=== PATIENT | male | born 1940 | race Caucasian/White ===

== ENCOUNTER → 2016-12-13 16:42 | Outpatient (CLI) | payer MEDICARE, OTHER ==
[2016-04-08 13:36] VITALS: BMI 31.6
[~2016-12-13 16:42] MED LIST: ACTOS45 MG PO; AUGMENTIN 875-11 TAB PO; BACTRIM DS TABL1 TAB PO; BACTROBAN 22 GM22 GM TOPICAL; BENEFIBER1 PKT PO; BOUDREAUXS113 GM TP; BUMEX2 MG PO; COLACE100 MG PO; COLCRYS0.6 MG PO; DIFLUCAN150 MG PO; DULCOLAX10 MG/SUPP RC; FLOMAX0.4 MG PO; GLUCAGON1 MG/KIT IM; GLUCAGON1 MG/KIT SQ; HUMALOG 30100 UNITS/; HUMALOG 30100 UNITS/ SC; HUMULIN R100 U/ML; HYDROCODONE-APA1 TAB PO; INSTA-GLUCOSE31 GM PO; INVANZ1 G/VIAL IV; K-DUR20 MEQ PO; LANTUS SOL100 UNIT/1 SC; LANTUS SOL100 UNIT/1 SQ; LEVEMIR100 U/M1 SQ; LEXAPRO10 MG PO; LEXAPRO20 MG PO; LOPRESSOR25 MG PO; LOTRISONE CREAM45 GM TP; LOVENOX40 MG/0.4 SQ; MACROBID100 MG PO; MIRALAX17 GM PO; NORCO 10/325 TA1 TA1 PO; NYSTATIN1 PWD TOPICAL; NYSTATIN15 GM TP; NYSTATIN60 GM TP; PLAVIX75 MG PO; PROSCAR5 MG PO; ROCEPHIN 1 GM IN1 GM IM; SLOW-MAG 64 MG64 MG PO; SODIUM CL 0.41000 ML IV; TYLENOL325 MG PO; ULTRAM50 MG PO; VANCOMYCIN H1 G/VIA1 IV; ZAROXOLYN2.5 MG PO; ZESTRIL10 MG PO; ZOCOR40 MG PO; [UNRECOGNIZED DRUG - OTHER] PO
[2016-12-13 18:28] LABS: BASOPHILS 0.6 % (0-2); EOSINOPHILS 3.6 % (0-7); HEMATOCRIT 52.7 % (42.0-54.0); HEMOGLOBIN 17.3 g/dL (13.5-17.5); IMMATURE GRANULOCYTES 0.3 % (0-5); LYMPHOCYTES 28.6 % (15-50); MCH 29.2 pg (26.0-34.0); MCHC 32.8 g/dL (31.0-37.0); MEAN PLATELET VOLUME 11.4 fL (7.4-10.4); MONOCYTES 6.7 % (2-11); NEUTROPHILS 60.2 % (40-80); PLATELET COUNT 139 10x3/uL (130-400); RBC 5.92 10x6/uL (4.20-6.10); RDW 13.2 % (11.5-14.5); WBC 6.8 10x3/uL (4.8-10.8)
[2016-12-13 19:02] LABS: BILIRUBIN - TOTAL 0.68 mg/dL (0.2-1.3); CALCIUM 8.5 mg/dL (8.5-10.1); CARBON DIOXIDE 29.5 mmol/L (21.0-32.0); CREATININE - SERUM 1.4 mg/dL (0.6-1.3); POTASSIUM - SERUM 3.5 mmol/L (3.5-5.1); PROTEIN - SERUM 7.1 g/dL (6.4-8.2)
== END | disposition home or self-care (01) ==
LOC: D.LABREF 16:42
PROVIDERS: Family Medicine
DX: N18.9 Chronic kidney disease, unspecified (principal); I50.9 Heart failure, unspecified

== ENCOUNTER → 2017-01-03 15:15 | Outpatient (CLI) | payer MEDICARE, OTHER ==
[2016-04-08 13:36] VITALS: BMI 31.6
[2017-01-03 16:46] LABS: APPEARANCE CLEAR (CLEAR); BILIRUBIN NEGATIVE (NEGATIVE); COLOR YELLOW (YELLOW); GLUCOSE 50 mg/dL (NEGATIVE); KETONE NEGATIVE (NEGATIVE); LEUKOCYTE ESTERASE 2+ (NEGATIVE); NITRITE NEGATIVE (NEGATIVE); PROTEIN 1+ mg/dL (NEGATIVE); SPECIFIC GRAVITY 1.015 (1.005-1.020)
[2017-01-03 16:47] LABS: BACTERIA FEW /hpf (NONE SEEN); RED CELLS - URINE >50 /hpf (0-5)
[2017-01-03 16:49] LABS: HEMOGLOBIN A1C 10.3 % (4.8-6.0)
== END | disposition home or self-care (01) ==
LOC: D.LABREF 15:15
PROVIDERS: Family Medicine
DX: E11.9 Type 2 diabetes mellitus without complications (principal); Z87.440 Personal history of urinary (tract) infections

== ENCOUNTER → 2017-02-03 13:35 | Outpatient (CLI) | payer MEDICARE, OTHER ==
[2016-04-08 13:36] VITALS: BMI 31.6
[~2017-02-03 13:35] MED LIST changes: +DIFLUCAN100 MG PO; +MUCINEX DM ER1 EAC1 PO; +NYSTATIN15 GM TOPICAL; +OMNICEF300 MG PO; +PROTONIX40 MG PO; +TESSALON PERLE100 MG PO
== END | disposition home or self-care (01) ==
LOC: D.LABREF 13:35
DX: Z46.6 Encounter for fitting and adjustment of urinary device (principal); N40.0 Benign prostatic hyperplasia without lower urinary tract symptoms; Z86.73 Personal history of transient ischemic attack (TIA), and cerebral infarction without residual deficits; N39.0 Urinary tract infection, site not specified; E11.51 Type 2 diabetes mellitus with diabetic peripheral angiopathy without gangrene

== ENCOUNTER 2017-02-05 21:17 | Inpatient (IN) | payer MEDICARE, OTHER ==
[~2017-02-05 21:17] MED LIST changes: -DIFLUCAN100 MG PO; -MUCINEX DM ER1 EAC1 PO; -NYSTATIN15 GM TOPICAL; -OMNICEF300 MG PO; -PROTONIX40 MG PO; -TESSALON PERLE100 MG PO
[2017-02-05 21:44] LABS: APPEARANCE CLEAR (CLEAR); BILIRUBIN NEGATIVE (NEGATIVE); COLOR YELLOW (YELLOW); GLUCOSE 1000 mg/dL (NEGATIVE); KETONE NEGATIVE (NEGATIVE); NITRITE POSITIVE (NEGATIVE); PROTEIN TRACE mg/dL (NEGATIVE); SPECIFIC GRAVITY 1.015 (1.005-1.020); UROBILINOGEN NORMAL (NORMAL)
[2017-02-05 21:47] LABS: BACTERIA MANY /hpf (NONE SEEN); EPITHELIAL CELLS 0-5 /hpf (0-5); WHITE CELLS - URINE 25-50 /hpf (0-5)
[2017-02-05 21:48] LABS: AMORPHOUS SEDIMENT <1+ /lpf (NONE SEEN)
[2017-02-05 22:02] LABS: BASOPHILS 0.6 % (0-2); EOSINOPHILS 3.3 % (0-7); HEMATOCRIT 51.4 % (42.0-54.0); HEMOGLOBIN 16.9 g/dL (13.5-17.5); IMMATURE GRANULOCYTES 0.4 % (0-5); LYMPHOCYTES 40.6 % (15-50); MCH 29.5 pg (26.0-34.0); MCHC 32.9 g/dL (31.0-37.0); MCV 89.9 fL (80.0-100.0); MEAN PLATELET VOLUME 11.1 fL (7.4-10.4); MONOCYTES 6.7 % (2-11); NEUTROPHILS 48.4 % (40-80); PLATELET COUNT 131 10x3/uL (130-400); RBC 5.72 10x6/uL (4.20-6.10); RDW 13.6 % (11.5-14.5); WBC 4.9 10x3/uL (4.8-10.8)
[2017-02-05 22:16] LABS: ALBUMIN 2.8 g/dL (3.4-5.0); ALKALINE PHOSPHATASE 173 U/L (46-116); ALT (SGPT) 14 U/L (10-68); BILIRUBIN - TOTAL 0.62 mg/dL (0.2-1.3); CALCIUM 9.3 mg/dL (8.5-10.1); CARBON DIOXIDE 31.4 mmol/L (21.0-32.0); CHLORIDE - SERUM 101 mmol/L (98-107); CREATININE - SERUM 1.4 mg/dL (0.6-1.3); POTASSIUM - SERUM 4.6 mmol/L (3.5-5.1); PROTEIN - SERUM 7.6 g/dL (6.4-8.2); SODIUM 140 mmol/L (136-145); UREA NITROGEN 27 mg/dL (7-18); eGFR NON AFRICAN AMERICAN 52 mL/min (90-120)
[2017-02-05 22:18] LABS: CREATINE KINASE 32 UL (21-232)
[2017-02-05 22:20] LABS: CALC OSMOLALITY 295 mosm/kg (275-300); GLUCOSE 323 mg/dL (74-106); TROPONIN-I < 0.017 ng/mL (0.000-0.060)
[2017-02-05 22:26] LABS: KETONE - SERUM NEGATIVE (NEGATIVE)
[2017-02-06] VITALS: BP 108/58
[2017-02-06 00:34] VITALS: BP 108/58; BMI 32.3
--- NOTE | 2017-02-06 01:05 | NUR ---
PT ARRIVED VIA STRETCHER FROM ER AT 0010 HRS. STAFF X4 TO PUT IN BED. PT BEDBOUND. PT ALERT, ORIENTED TO PERSON AND PLACE. REORIENTED TO TIME AND SITUATION. 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 URINE DARK. IV TO L HAND WITH INVANZ INFUSING. O2 2LNC. LUNGS DIMINISHED IN BASES BILAT. LOWER EXTREMITIES WITH IMPAIRED ROM AND FOOT DROP. NUMEROUS SMALL SORES NOTED TO BACK OF UPPER THIGHS AND LOWER BACK. DRESSING TO R HIP CLEAN, DRY AND INTACT. STATED SHE PUT THAT DRESSING ON PT KEPT SCRATCHING ONE OF THE SORES. BED ALRM ON. SR UP X2, CALL LIGHT WITHIN REACH.
--- NOTE | 2017-02-06 02:15 | NUR ---
PT REPOSITIONED IN BED FOR COMFORT. SCD'S PLACED. WILL CONTINEU TO MONITOR. SR UP X2, CALL LIGHT WITHIN REACH AND BED ALARM ON.
[2017-02-06 04:00] VITALS: BP 133/63
--- NOTE | 2017-02-06 04:25 | NUR ---
PT RESTING WITH EYES CLOSED. RESP EVEN AND REGULAR. SR UP X2, CALL LIGHT WITHIN REACH AND BED ALARM ON.
[2017-02-06 05:27] LABS: BASOPHILS 0.4 % (0-2); HEMATOCRIT 50.2 % (42.0-54.0); HEMOGLOBIN 16.7 g/dL (13.5-17.5); IMMATURE GRANULOCYTES 0.4 % (0-5); LYMPHOCYTES 25.5 % (15-50); MCH 29.6 pg (26.0-34.0); MCHC 33.3 g/dL (31.0-37.0); MCV 88.8 fL (80.0-100.0); MONOCYTES 9.3 % (2-11); NEUTROPHILS 62.4 % (40-80); PLATELET COUNT 141 10x3/uL (130-400); RBC 5.65 10x6/uL (4.20-6.10); RDW 13.6 % (11.5-14.5)
[2017-02-06 05:30] LABS: WBC 7.2 10x3/uL (4.8-10.8)
[2017-02-06 05:44] LABS: ANION GAP 11.4 mmol/L (8-16); CALCIUM 9.1 mg/dL (8.5-10.1); CARBON DIOXIDE 29.9 mmol/L (21.0-32.0); CREATININE - SERUM 1.4 mg/dL (0.6-1.3); POTASSIUM - SERUM 4.3 mmol/L (3.5-5.1)
--- NOTE | 2017-02-06 06:07 | NUR ---
VSS. PT DENIED ANY DISCOMFORT. NEEDS MET; WILL CONTINUE TO MONITOR.
--- NOTE | 2017-02-06 07:00 | NUR ---
RECEIVED REPORT. ASSUMED CARE OF PATIENT. RESTING IN BED WITH EYES OPEN, IV FLUIDS INFUSING ORDERED. RESP EVEN AND UNLABORED. DENIES NEEDS AT THIS TIME. NO DISTRESS.
[2017-02-06 08:00] VITALS: BP 110/59
--- NOTE | 2017-02-06 11:31 | NUR ---
FSBS 286. 10 UNITS HUMALOG ADMINISTERED PER SLIDING SCALE AT THIS TIME. NO DISTRESS.
--- NOTE | 2017-02-06 14:09 | NUR ---
CALLED AND SPOKE TO PATIENTS AND PATIENT DOES TAKE HIS PILLS WHOLE, DOES NOT NEED THEM CRUSHED. THANKED PATIENTS . SHE WILL BE UP TOMORROW. SHE IS NOT FEELING WELL TODAY.
--- NOTE | 2017-02-06 14:14 | NUR ---
AWAITING FOR SLOW MAG AND ZAROXYLYN TO BE BROUGHT UP FROM PHARMACY
[2017-02-06 16:00] VITALS: BP 148/72
--- NOTE | 2017-02-06 16:42 | NUR ---
FSBS 301. 12 UNITS HUMALOG ADMINISTERED ORDERED PER SLIDING SCALE.
--- NOTE | 2017-02-06 19:49 | NUR ---
RESUMED CARE OF PT, LYING IN BED RESPIRATIONS EVEN AND UNLABORED ON 2LPM VIA NC. RAMOS TO GRAVITY. LEFT HAND INFUSING NS @ 100. FAMILY AT BEDSIDE, CALL LIGHT IN REACH. WILL CONTINUE TO MONITOR. SEE NURSE ASSESSMENT.
[2017-02-06 20:00] VITALS: BP 138/62
[2017-02-07] VITALS: BP 133/59; BP 93/52
--- NOTE | 2017-02-07 00:17 | NUR ---
BED BATH AND LINENS CHANGED, CALL LIGHT IN REACH AND REPOSITIONED FOR COMFORT.
[2017-02-07 05:10] LABS: BASOPHILS 0.3 % (0-2); HEMATOCRIT 47.9 % (42.0-54.0); IMMATURE GRANULOCYTES 0.5 % (0-5); LYMPHOCYTES 29.4 % (15-50); MCH 29.5 pg (26.0-34.0); MCHC 33.4 g/dL (31.0-37.0); MCV 88.4 fL (80.0-100.0); MEAN PLATELET VOLUME 11.4 fL (7.4-10.4); MONOCYTES 8.9 % (2-11); NEUTROPHILS 57.9 % (40-80); PLATELET COUNT 137 10x3/uL (130-400); RBC 5.42 10x6/uL (4.20-6.10); RDW 13.8 % (11.5-14.5); WBC 6.3 10x3/uL (4.8-10.8)
[2017-02-07 05:19] LABS: ANION GAP 11.5 mmol/L (8-16); CALCIUM 8.9 mg/dL (8.5-10.1); CARBON DIOXIDE 29.5 mmol/L (21.0-32.0); CREATININE - SERUM 1.1 mg/dL (0.6-1.3); MAGNESIUM - SERUM 1.5 mg/dL (1.8-2.4)
--- NOTE | 2017-02-07 06:16 | NUR ---
NO CHANGES FROM PREVIOUS ASSESSMENT, CALL LIGHT IN REACH.
--- NOTE | 2017-02-07 07:00 | NUR ---
AM ROOUNDING WITH PATIENT APPEARING ASLEEP. RESP ARE EVEN AND NON LABORED. ON BACK. RAMOS CATH SEEN WITH YELLOW URINE. BILATERAL SCD'S ARE IN USE. LEFT HAND SEEN WITH NS INFUSING AT 100 CC/HR. MUNIR ALARM IN USE. WILL MONITOR.
[2017-02-07 07:03] VITALS: BP 129/69
[2017-02-07 08:05] VITALS: BP 122/60
[2017-02-07 11:47] VITALS: BP 137/66
--- NOTE | 2017-02-07 13:33 | NUR ---
1ST STEP OVERLAY MATTRESS TO BED.
[2017-02-07 15:31] VITALS: BMI 33.2
[2017-02-07 15:42] VITALS: BP 118/56
[2017-02-07 19:00] VITALS: BP 131/50
--- NOTE | 2017-02-07 19:35 | NUR ---
PT IN BED RESTING QUEITLY. DENIES ANY PAIN OR NEEDS AT THIS TIME. BED IN LOW POSITION, CALL LIGHT WITHIN REACH.
--- NOTE | 2017-02-07 21:47 | NUR ---
PT IN BED RESTING QUIETLY. DENIES ANY PAIN OR NEEDS AT THIS TIME. BED IN LOW POSITION, CALL LIGHT WITHIN REACH.
--- NOTE | 2017-02-08 03:22 | NUR ---
PT IN BED RESTING QUIETLY. DENIES ANY PAIN OR NEEDS AT THIS TIME. BED IN LOW POSITION, CALL LIGHT WITHIN REACH.
[2017-02-08 04:00] VITALS: BP 149/64
[2017-02-08 05:25] LABS: BASOPHILS 0.5 % (0-2); EOSINOPHILS 3.9 % (0-7); HEMATOCRIT 47.4 % (42.0-54.0); HEMOGLOBIN 15.6 g/dL (13.5-17.5); IMMATURE GRANULOCYTES 0.4 % (0-5); LYMPHOCYTES 26.4 % (15-50); MCH 29.3 pg (26.0-34.0); MCHC 32.9 g/dL (31.0-37.0); MCV 88.9 fL (80.0-100.0); MEAN PLATELET VOLUME 11.2 fL (7.4-10.4); MONOCYTES 10.1 % (2-11); NEUTROPHILS 58.7 % (40-80); PLATELET COUNT 125 10x3/uL (130-400); RBC 5.33 10x6/uL (4.20-6.10); RDW 13.7 % (11.5-14.5); WBC 5.6 10x3/uL (4.8-10.8)
[2017-02-08 05:28] LABS: CALCIUM 8.6 mg/dL (8.5-10.1); CARBON DIOXIDE 30.6 mmol/L (21.0-32.0); CHLORIDE - SERUM 105 mmol/L (98-107); POTASSIUM - SERUM 3.6 mmol/L (3.5-5.1); SODIUM 141 mmol/L (136-145); eGFR NON AFRICAN AMERICAN 77 mL/min (90-120)
[2017-02-08 05:43] LABS: CALC OSMOLALITY 286 mosm/kg (275-300); GLUCOSE 182 mg/dL (74-106); UREA NITROGEN 15 mg/dL (7-18)
[2017-02-08 08:06] VITALS: BP 143/65
--- NOTE | 2017-02-08 09:53 | NUR ---
02/07/17 Wound care (late entry) 1245 Noted numerous scabbed areas on legs and trunk-pt states that it was a "rash". There is an open wound on right hip that measures 1.5cm x 1.5cm. It has dry wound bed and periwound. No drainage or odor noted. Just above gluteal cleft is a skin fold running vertically. A skin tear is noted in the fold. There is another skin fold running diagonally that has a skin tear. The pt is being repositioned q 2 hours with maximum assistance. An air overlay mattress was placed on the bed to help decrease pressure and moisture. He is incontinent. Recommend calmoseptine cream to protect from moisture and covering right hip open wound with bordered gauze to protect it. Continue q2h position changes and personal care as necessary. Wound care will continue to monitor.
[2017-02-08 12:17] VITALS: BP 121/49
--- NOTE | 2017-02-08 12:24 | NUR ---
IV TUBING CHANGED OUT AT THIS TIME.
[2017-02-08] MEDS ORDERED: OMNICEF300 MG PO (12:39)
--- NOTE | 2017-02-08 13:16 | NUR ---
SPPOKE TO PATIENTS AND SHE IS UPSET THAT PATIENT IS BEING DISCHARGED PRIOR TO HAVING RASH DIAGNOSED ON HIS BACK. PATIENTS STATES THAT WE HAVE TO LET DISPATCH FROM [facility] KNOW THAT IT TOOK 6 PEOPLE TO GET HIM TO THE BEDROOM ONTO THE STRETCHER BECAUSE THEY CAN'T GET THE STRETCHER DOWN THE [place]. INFORMED PATIENTS THAT I WOULD LET TRANSPORT KNOW AND THAT ALSO WE WOULD BE CHANGING PATIENTS RAMOS CATHETER PRIOR TO HIM LEAVING TODAY. WILL CALL PATIENTS WHEN PATIENT LEAVES FACILITY TO HOME.
--- NOTE | 2017-02-08 14:18 | NUR ---
RAMOS CATHETER CHANGED AT THIS TIME PER ORDERS FROM /KAILEY MAGDALENO. 16 FR RAMOS PLACED VIA STERILE TECHNIQUE. APPROX 75 CC PALE YELLOW URINE RECEIVED UPON INSERTION OF F/C. RAMOS CATHETER TO DRAINAGE BAG VIA GRAVITY. PATIENT TOLERATED PROCEDURE WELL. PATIENT DENIES ANY PAIN OR DISCOMFORT. CALL LIGHT PLACED WITHIN REACH. NO DISTRESS.
--- NOTE | 2017-02-08 14:45 | NUR ---
SPOKE WITH ESTEBAN AT [facility] TO ARRANGE TRANSPORTATION HOME. INFORMED ESTEBAN OF THE NEED FOR EXTRA PEOPLE TO GET PATIENT INTO THE HOME. ESTEBAN STATED HE SHOULD HAVE SOMEONE HERE WITHIN ABOUT 45 MINUTES
--- NOTE | 2017-02-08 14:56 | NUR ---
20 GAUGE IV REMOVED FROM LEFT HAND PATIENT IS BEING DISCHARGED TO HOME VIA AMBULANCE. CATHETER INTACT. NO BLEEDING FROM SITE. 2X2 GAUZE APPLIED AND SECURED WITH TAPE. TOLERATED REMOVAL OF IV WELL. NO DISTRESS.
--- NOTE | 2017-02-08 15:25 | NUR ---
CALLED AND SPOKE TO PATIENTS . [facility] HERE TO GET PATIENT AT THIS TIME. PATIENT ATTEMPTED TO SIGN HIS DISCHARGE INSTRUCTIONS. INSTRUCTIONS PROVIDED TO AND PATIENT AND WENT OVER MEDICATIONS CALLED TO THE PHARMACY.
--- NOTE | 2017-02-08 15:40 | NUR ---
PATIENT LEFT UNIT WITH ALL BELONGINGS WITH [facility] PERSON[facility]. NO DISTRESS UPON LEAVING UNIT. CALLED AND NOTIFIED THAT PATIENT WAS ON HIS WAY AT THIS TIME.
--- NOTE | 2017-02-08 16:37 | NUR ---
Patient Name: ARCHIE AGUILAR Admission Status: ER Accout number: [id number] Admission Date: 02-05-2017 : 1940 Admission Diagnosis: Attending: TORRES RAMON Current LOS: 3 Anticipated DC Date: 02-08-2017 Planned Disposition: Home with Home Health Primary Insurance: MEDICARE A & B PLANNED EXTERNAL PROVIDER: [facility] LATE ENTRY: Discharge Planning Comments: * Is the patient Alert and Oriented? Yes 0 * How many steps to enter\exit or inside your home? RAMP 0 * PCP DR. MOTT 0 * Pharmacy [place] * Preadmission Environment Home with Family 0 * ADLs Partial Dependent 0 * Partial ADLs (Assistance needed) Bathing Dressing Medication Management Toileting Transfers 0 * Equipment Hospital Bed Luciano Lift Wheelchair 0 * Other Equipment NO MEDICAL EQUIPMENT PROVIDER PREFERENCE 0 * List name and contact numbers for known caregivers / representatives who currently or will assist patient after discharge: DELANO AGUILAR, SPOUSE, 0 * Community resources currently utilized Home Health 0 * Please name any agencies selected above. [facility] 0 * Additional services required to return to the preadmission environment? No 0 * Can the patient safely return to the preadmission environment? Yes 0 * Has this patient been hospitalized within the prior 30 days at any hospital? No 0 CM RECEIVED DISCHARGE ORDER, MET WITH PT IN ROOM TO DISCUSS DISCHARGE PLANNING AND NEEDS. PT REPORTS HAVING ALL NEEDED MEDICAL EQUIPMENT AT HOME AND PT'S SPOUSE TAKES CARE OF ALL OF PT'S NEEDS. PT HAS HOME HEALTH WITH [facility]. PT'S NURSE REPORTS PT ALSO HAS [facility] VISITING; PT'S NURSE HAS SPOKEN TO PT'S SPOUSE WHO IS IN AGREEMENT WITH DISCHARGE PLAN HOME TODAY WITH HOME HEALTH RESUMPTION, SHE IS HOME TO RECEIVE PT VIA AMBULANCE. PT'S NURSE WILL CALL AMBULANCE AND NOTIFY PT'S SPOUSE WHEN AMBULANCE LEAVES HOSPITAL WITH PT. PT HAPPY ABOUT GETTING TO GO HOME, IMPORTANT MESSAGE FROM MEDICARE PROVIDED AND DISCUSSED. CM RECEIVED CALL FROM KANA OF [facility], SHE HAS BEEN CONTACTED BY PT'S SPOUSE AND REQUESTED DISCHARGE INFORMATION. CM FAXED DISCHARGE INFORMATION TO [facility] AT [phone]. Transmission And Protection Engineer: Charlie Hughes
== END 2017-02-08 15:45 | disposition home health service (06) | DRG 698 ==
LOC: D.ER 21:17 → D.M2 22:56
PROVIDERS: Emergency Medicine; ADMIT Family Medicine
DX: T83.511A Infection and inflammatory reaction due to indwelling urethral catheter, initial encounter (principal); G93.41 Metabolic encephalopathy; I13.0 Hypertensive heart and chronic kidney disease with heart failure and stage 1 through stage 4 chronic kidney disease, or unspecified chronic kidney disease; N17.9 Acute kidney failure, unspecified; N39.0 Urinary tract infection, site not specified; Y84.6 Urinary catheterization as the cause of abnormal reaction of the patient, or of later complication, without mention of misadventure at the time of the procedure; E11.22 Type 2 diabetes mellitus with diabetic chronic kidney disease; N18.9 Chronic kidney disease, unspecified; I50.9 Heart failure, unspecified; Z74.01 Bed confinement status; N40.0 Benign prostatic hyperplasia without lower urinary tract symptoms; K21.9 Gastro-esophageal reflux disease without esophagitis; E86.0 Dehydration; I25.10 Atherosclerotic heart disease of native coronary artery without angina pectoris; E11.65 Type 2 diabetes mellitus with hyperglycemia; Z79.4 Long term (current) use of insulin; Z86.73 Personal history of transient ischemic attack (TIA), and cerebral infarction without residual deficits; M17.0 Bilateral primary osteoarthritis of knee

== ENCOUNTER → 2017-03-30 18:12 | Outpatient (CLI) | payer MEDICARE, OTHER ==
[~2017-03-30 18:12] MED LIST changes: +DIFLUCAN100 MG PO; +MUCINEX DM ER1 EAC1 PO; +NYSTATIN15 GM TOPICAL; +OMNICEF300 MG PO; +PROTONIX40 MG PO; +TESSALON PERLE100 MG PO
[2017-03-30 19:44] LABS: APPEARANCE CLEAR (CLEAR); BACTERIA MODERATE /hpf (NONE SEEN); BILIRUBIN NEGATIVE (NEGATIVE); COLOR YELLOW (YELLOW); GLUCOSE NEGATIVE (NEGATIVE); KETONE NEGATIVE (NEGATIVE); NITRITE NEGATIVE (NEGATIVE); PROTEIN NEGATIVE (NEGATIVE); RED CELLS - URINE 0-5 /hpf (0-5); SPECIFIC GRAVITY 1.015 (1.005-1.020); UROBILINOGEN NORMAL (NORMAL); WHITE CELLS - URINE 0-5 /hpf (0-5)
== END | disposition home or self-care (01) ==
LOC: D.LABREF 18:12
PROVIDERS: Family Medicine
DX: N31.9 Neuromuscular dysfunction of bladder, unspecified (principal); N39.0 Urinary tract infection, site not specified; T83.511A Infection and inflammatory reaction due to indwelling urethral catheter, initial encounter; N40.0 Benign prostatic hyperplasia without lower urinary tract symptoms; E11.51 Type 2 diabetes mellitus with diabetic peripheral angiopathy without gangrene

== ENCOUNTER → 2017-04-13 17:55 | Outpatient (CLI) | payer MEDICARE, OTHER ==
[2017-04-13 19:28] LABS: APPEARANCE HAZY (CLEAR); BILIRUBIN NEGATIVE (NEGATIVE); COLOR YELLOW (YELLOW); GLUCOSE NEGATIVE (NEGATIVE); KETONE NEGATIVE (NEGATIVE); NITRITE NEGATIVE (NEGATIVE); PROTEIN TRACE mg/dL (NEGATIVE); SPECIFIC GRAVITY 1.015 (1.005-1.020); UROBILINOGEN NORMAL (NORMAL)
[2017-04-13 19:29] LABS: BACTERIA MANY /hpf (NONE SEEN); RED CELLS - URINE 25-50 /hpf (0-5); WHITE CELLS - URINE >50 /hpf (0-5)
== END | disposition home or self-care (01) ==
LOC: D.LABREF 17:55
PROVIDERS: Family Medicine
DX: N39.0 Urinary tract infection, site not specified (principal); T83.511A Infection and inflammatory reaction due to indwelling urethral catheter, initial encounter; N31.9 Neuromuscular dysfunction of bladder, unspecified; N40.0 Benign prostatic hyperplasia without lower urinary tract symptoms

== ENCOUNTER → 2017-04-20 12:10 | Outpatient (CLI) | payer MEDICARE, OTHER ==
[2017-04-20 13:59] LABS: APPEARANCE CLOUDY (CLEAR); COLOR YELLOW (YELLOW); GLUCOSE 250 mg/dL (NEGATIVE); NITRITE NEGATIVE (NEGATIVE); PROTEIN 2+ mg/dL (NEGATIVE)
[2017-04-20 14:00] LABS: BILIRUBIN NEGATIVE (NEGATIVE); KETONE NEGATIVE (NEGATIVE); UROBILINOGEN NORMAL (NORMAL)
[2017-04-20 14:02] LABS: BACTERIA MANY /hpf (NONE SEEN); EPITHELIAL CELLS 0-5 /hpf (0-5); WHITE CELLS - URINE >50 /hpf (0-5)
== END | disposition home or self-care (01) ==
LOC: D.LABREF 12:10
PROVIDERS: Family Medicine
DX: N39.0 Urinary tract infection, site not specified (principal)

== ENCOUNTER 2017-04-23 18:56 | Inpatient (IN) | payer MEDICARE, OTHER ==
[~2017-04-23] VITALS: Ht 188 cm; Wt 120.7 kg
--- NOTE | ~2017-04-23 | EC ---
PATIENT:ARCHIE AGUILAR DATE OF SERVICE: 04/23/17 SEX: M MEDICAL RECORD: [id number] DATE OF : 40 LOCATION:[facility] AGE OF PATIENT: 76 ADMISSION DATE: 04/23/17 REFERRING PHYSICIAN: INTERPRETING PHYSICIAN: ALISHA CRUZ MD ECHOCARDIOGRAM REPORT ECHO CHARGES 5 ECHO LIMITED CLINICAL DIAGNOSIS: CHF HX OF DE/CVA ECHOCARDIOGRAPHIC MEASUREMENTS (adult normal given) AC root (d.<3.7cm) cm LV Septum d (<1.2 cm> cm Valve Excursion cm LV Septum (systole) cm Left Atria (s.<4.0cm> cm LVPW d(<1.2cm) cm RV (d.<2.3cm) 4.5 cm LVPW (sytole) cm LV diastole(<5.6CM) 5.0 cm MV E-F(>70mm/sec) cm LV systole 3.7 cm LVOT Diameter 2.0 cm MV exc.(>10mm) cm Est.ejection fraction (50-75%) % Pericardial Effusion N DOPPLER: LVIT cm/sec A 72.0 cm/sec E 50.0 cm/sec LA cm/sec RVSP 20 mmHg LVOT 111 cm/sec AOP1/2T m/s Asc. Ao 134 cm/sec RVOT cm/sec RA cm/sec PA cm/sec AV Gradient Peak 7.23 mmHg AV Mean 3.31 mmHg AV Area 2.4 cm MV Gradient Peak 2.01 mmHg MV Mean 1.01 mmHg MV Area cm COMMENTS: Night Assistant: Mervat SANCHEZ Engine Repair Supervisor: 1 Dr. Davidson TAPE# PACS DATE OF SERVICE: 04/26/2017 Adequate 2D echo, color flow, spectral Doppler, and M-mode. Borderline LVH. LV internal dimensions are normal. Grossly wall motion appears normal. EF estimated at 50%. Aortic valve sclerosis without stenosis by Doppler interrogation. The left atrium is dilated at 4.5 cm. Mitral valve shows no prolapse. Trace MR. Right-sided chamber size is grossly normal. Trace TR. TRANSINT:[id number] Voice Confirmation ID: [id number] DOCUMENT ID: [id number] ECHOCARDIOGRAM REPORT [id number] ARCHIE AGUILAR ALISHA CRUZ MD at 1318 CC: [id number] DICTATION DATE: 04/26/17 1427 LETTERPRESS SETTER: 04/26/17 1452 ADM IN [facility] [address] [id number]
[~2017-04-23 18:56] MED LIST changes: -DIFLUCAN100 MG PO; -MUCINEX DM ER1 EAC1 PO; -NYSTATIN15 GM TOPICAL; -PROTONIX40 MG PO; -TESSALON PERLE100 MG PO
[2017-04-23 19:20] LABS: BASOPHILS 0.2 % (0-2); EOSINOPHILS 2.1 % (0-7); HEMATOCRIT 52.4 % (42.0-54.0); HEMOGLOBIN 17.3 g/dL (13.5-17.5); IMMATURE GRANULOCYTES 0.1 % (0-5); LYMPHOCYTES 27.8 % (15-50); MCH 29.4 pg (26.0-34.0); MEAN PLATELET VOLUME 10.5 fL (7.4-10.4); MONOCYTES 5.5 % (2-11); NEUTROPHILS 64.3 % (40-80); PLATELET COUNT 147 10x3/uL (130-400); RBC 5.89 10x6/uL (4.20-6.10); RDW 13.1 % (11.5-14.5); WBC 8.2 10x3/uL (4.8-10.8)
[2017-04-23 19:40] LABS: ALBUMIN 3.2 g/dL (3.4-5.0); ANION GAP 11.5 mmol/L (8-16); BILIRUBIN - TOTAL 0.74 mg/dL (0.2-1.3); CALCIUM 9.8 mg/dL (8.5-10.1); CARBON DIOXIDE 32.6 mmol/L (21.0-32.0); CREATININE - SERUM 1.3 mg/dL (0.6-1.3); POTASSIUM - SERUM 4.1 mmol/L (3.5-5.1)
[2017-04-23 20:01] LABS: CREATINE KINASE 25 UL (21-232); PRO BNP 232 pg/mL (0-450); TROPONIN-I < 0.017 ng/mL (0.000-0.060)
[2017-04-23 20:35] LABS: APPEARANCE CLOUDY (CLEAR); BILIRUBIN NEGATIVE (NEGATIVE); COLOR YELLOW (YELLOW); GLUCOSE NEGATIVE (NEGATIVE); KETONE NEGATIVE (NEGATIVE); NITRITE NEGATIVE (NEGATIVE); PROTEIN NEGATIVE (NEGATIVE); UROBILINOGEN NORMAL (NORMAL)
[2017-04-23 20:36] LABS: BACTERIA FEW /hpf (NONE SEEN); RED CELLS - URINE 0-5 /hpf (0-5)
[2017-04-24 01:47] VITALS: BP 135/52; BMI 34.2
[2017-04-24 04:00] VITALS: BP 104/60
[2017-04-24 10:47] VITALS: BP 108/62
[2017-04-24 17:00] VITALS: BP 135/71
[2017-04-24 22:16] VITALS: BP 128/62
[2017-04-25 01:22] VITALS: BP 104/50
[2017-04-25 07:30] LABS: BASOPHILS 0.3 % (0-2); EOSINOPHILS 1.5 % (0-7); HEMATOCRIT 48.8 % (42.0-54.0); HEMOGLOBIN 16.2 g/dL (13.5-17.5); IMMATURE GRANULOCYTES 0.3 % (0-5); LYMPHOCYTES 21.8 % (15-50); MCH 29.3 pg (26.0-34.0); MCHC 33.2 g/dL (31.0-37.0); MCV 88.2 fL (80.0-100.0); MEAN PLATELET VOLUME 10.7 fL (7.4-10.4); NEUTROPHILS 67.1 % (40-80); PLATELET COUNT 164 10x3/uL (130-400); RBC 5.53 10x6/uL (4.20-6.10); RDW 13.2 % (11.5-14.5); WBC 9.1 10x3/uL (4.8-10.8)
[2017-04-25 08:02] LABS: ALBUMIN 2.8 g/dL (3.4-5.0); ANION GAP 12.7 mmol/L (8-16); CALCIUM 9.1 mg/dL (8.5-10.1); CARBON DIOXIDE 29.7 mmol/L (21.0-32.0); CREATININE - SERUM 1.5 mg/dL (0.6-1.3); POTASSIUM - SERUM 3.4 mmol/L (3.5-5.1)
[2017-04-25 08:26] LABS: BILIRUBIN - TOTAL 0.69 mg/dL (0.2-1.3); PROTEIN - SERUM 7.1 g/dL (6.4-8.2); THYROID STIMULATING HORMONE 3.7 uIU/mL (0.36-3.74)
[2017-04-25 08:34] VITALS: BP 106/64
[2017-04-25 12:33] VITALS: BP 118/55
[2017-04-25 16:51] VITALS: BP 131/50
[2017-04-25 22:17] VITALS: BP 122/57
[2017-04-26 02:28] VITALS: BP 104/62
[2017-04-26 04:41] VITALS: BP 98/55
[2017-04-26 07:01] LABS: BASOPHILS 0.3 % (0-2); EOSINOPHILS 2.1 % (0-7); HEMATOCRIT 44.8 % (42.0-54.0); HEMOGLOBIN 14.8 g/dL (13.5-17.5); IMMATURE GRANULOCYTES 0.1 % (0-5); LYMPHOCYTES 13.5 % (15-50); MCH 29.1 pg (26.0-34.0); MEAN PLATELET VOLUME 10.7 fL (7.4-10.4); MONOCYTES 10.3 % (2-11); NEUTROPHILS 73.7 % (40-80); PLATELET COUNT 139 10x3/uL (130-400); RBC 5.09 10x6/uL (4.20-6.10); RDW 13.5 % (11.5-14.5); WBC 7.7 10x3/uL (4.8-10.8)
[2017-04-26 07:29] LABS: ALBUMIN 2.5 g/dL (3.4-5.0); ANION GAP 11.8 mmol/L (8-16); BILIRUBIN - TOTAL 0.74 mg/dL (0.2-1.3); CALCIUM 8.7 mg/dL (8.5-10.1); CARBON DIOXIDE 29.5 mmol/L (21.0-32.0); CREATININE - SERUM 1.5 mg/dL (0.6-1.3); POTASSIUM - SERUM 3.3 mmol/L (3.5-5.1); PROTEIN - SERUM 6.8 g/dL (6.4-8.2)
[2017-04-26 08:26] VITALS: BP 97/52
[2017-04-26 12:27] VITALS: BP 121/60
[2017-04-26 14:18] VITALS: BMI 34.1
[2017-04-26 16:51] VITALS: BP 114/54
[2017-04-26 20:51] VITALS: BP 123/59
[2017-04-27 05:46] LABS: BASOPHILS 0.3 % (0-2); HEMATOCRIT 44.9 % (42.0-54.0); HEMOGLOBIN 14.8 g/dL (13.5-17.5); IMMATURE GRANULOCYTES 0.2 % (0-5); MCV 87.9 fL (80.0-100.0); MEAN PLATELET VOLUME 10.9 fL (7.4-10.4); MONOCYTES 13.3 % (2-11); NEUTROPHILS 71.2 % (40-80); PLATELET COUNT 133 10x3/uL (130-400); RBC 5.11 10x6/uL (4.20-6.10); RDW 13.6 % (11.5-14.5); WBC 6.1 10x3/uL (4.8-10.8)
[2017-04-27 05:53] VITALS: BP 108/55
[2017-04-27 05:59] LABS: ALBUMIN 2.4 g/dL (3.4-5.0); ANION GAP 9.5 mmol/L (8-16); BILIRUBIN - TOTAL 0.6 mg/dL (0.2-1.3); CALCIUM 8.6 mg/dL (8.5-10.1); CARBON DIOXIDE 30.7 mmol/L (21.0-32.0); CREATININE - SERUM 1.5 mg/dL (0.6-1.3); POTASSIUM - SERUM 3.2 mmol/L (3.5-5.1); PROTEIN - SERUM 6.8 g/dL (6.4-8.2)
[2017-04-27 08:44] VITALS: BP 106/62
[2017-04-27 11:53] VITALS: BP 130/53
[2017-04-27 16:17] VITALS: BP 82/49
[2017-04-27 17:03] VITALS: BP 95/52
[2017-04-27 20:00] VITALS: BP 123/71
[2017-04-28] VITALS: BP 130/71
[2017-04-28 05:00] VITALS: BP 133/66
[2017-04-28 06:03] LABS: BASOPHILS 0.3 % (0-2); EOSINOPHILS 0.6 % (0-7); HEMATOCRIT 47.9 % (42.0-54.0); IMMATURE GRANULOCYTES 0.4 % (0-5); LYMPHOCYTES 16.4 % (15-50); MCHC 33.4 g/dL (31.0-37.0); MCV 86.9 fL (80.0-100.0); MEAN PLATELET VOLUME 10.8 fL (7.4-10.4); MONOCYTES 13.8 % (2-11); NEUTROPHILS 68.5 % (40-80); PLATELET COUNT 134 10x3/uL (130-400); RBC 5.51 10x6/uL (4.20-6.10); RDW 13.6 % (11.5-14.5); WBC 6.7 10x3/uL (4.8-10.8)
[2017-04-28 06:45] LABS: ALBUMIN 2.9 g/dL (3.4-5.0); ANION GAP 11.4 mmol/L (8-16); BILIRUBIN - TOTAL 0.53 mg/dL (0.2-1.3); CALCIUM 9.3 mg/dL (8.5-10.1); CARBON DIOXIDE 31.1 mmol/L (21.0-32.0); CREATININE - SERUM 1.7 mg/dL (0.6-1.3); POTASSIUM - SERUM 3.5 mmol/L (3.5-5.1); PROTEIN - SERUM 7.7 g/dL (6.4-8.2)
[2017-04-28 08:33] VITALS: BP 107/71
[2017-04-28 12:57] VITALS: BP 123/61
[2017-04-28 17:29] LABS: COLOR YELLOW (YELLOW)
[2017-04-28 17:30] LABS: APPEARANCE SLT CLOUDY (CLEAR); BILIRUBIN NEGATIVE (NEGATIVE); GLUCOSE NEGATIVE (NEGATIVE); KETONE NEGATIVE (NEGATIVE); NITRITE NEGATIVE (NEGATIVE); PROTEIN NEGATIVE (NEGATIVE); UROBILINOGEN NORMAL (NORMAL)
[2017-04-28 20:00] VITALS: BP 102/58
[2017-04-28 22:21] VITALS: Ht 188 cm; Wt 120.7 kg
[2017-04-29 04:00] VITALS: BP 114/66
[2017-04-29 06:45] LABS: BASOPHILS 0.4 % (0-2); EOSINOPHILS 1.1 % (0-7); HEMATOCRIT 50.6 % (42.0-54.0); HEMOGLOBIN 16.9 g/dL (13.5-17.5); IMMATURE GRANULOCYTES 0.2 % (0-5); LYMPHOCYTES 33.1 % (15-50); MCH 28.8 pg (26.0-34.0); MCHC 33.4 g/dL (31.0-37.0); MCV 86.2 fL (80.0-100.0); MEAN PLATELET VOLUME 10.6 fL (7.4-10.4); MONOCYTES 16.6 % (2-11); NEUTROPHILS 48.6 % (40-80); PLATELET COUNT 128 10x3/uL (130-400); RBC 5.87 10x6/uL (4.20-6.10); RDW 13.5 % (11.5-14.5)
[2017-04-29 06:46] LABS: WBC 4.5 10x3/uL (4.8-10.8)
[2017-04-29 07:03] LABS: ALBUMIN 2.7 g/dL (3.4-5.0); ANION GAP 8.8 mmol/L (8-16); BILIRUBIN - TOTAL 0.52 mg/dL (0.2-1.3); CALCIUM 8.9 mg/dL (8.5-10.1); CARBON DIOXIDE 32.9 mmol/L (21.0-32.0); CREATININE - SERUM 1.9 mg/dL (0.6-1.3); PROTEIN - SERUM 7.8 g/dL (6.4-8.2)
[2017-04-29 07:14] LABS: POTASSIUM - SERUM 2.7 mmol/L (3.5-5.1)
[2017-04-29 08:16] VITALS: BP 109/57
[2017-04-29 12:57] VITALS: BP 114/65
[2017-04-29 16:14] VITALS: BP 110/67
[2017-04-29 20:00] VITALS: BP 111/62
[2017-04-30] VITALS: BP 99/65
[2017-04-30 04:00] VITALS: BP 105/65
[2017-04-30 09:03] VITALS: BP 104/62
[2017-04-30 20:00] VITALS: BP 130/71
[2017-05-01] VITALS: BP 115/69
[2017-05-01 04:00] VITALS: BP 117/59
[2017-05-01 08:47] VITALS: BP 101/54
[2017-05-01 18:42] VITALS: BP 114/68
[2017-05-01 20:00] VITALS: BP 108/54
[2017-05-02] VITALS: BP 111/64
[2017-05-02 04:00] VITALS: BP 97/60
[2017-05-02 08:21] VITALS: BP 113/63
[2017-05-02] MEDS ORDERED: TESSALON PERLE100 MG PO (09:10)
[2017-05-02] MEDS ORDERED: BUMEX2 MG PO (09:10)
[2017-05-02] MEDS ORDERED: MUCINEX DM ER1 EAC1 PO (09:10)
[2017-05-02] MEDS ORDERED: PROTONIX40 MG PO (09:10)
[2017-05-02] MEDS ORDERED: NYSTATIN15 GM TOPICAL (09:11)
[2017-05-02] MEDS ORDERED: DIFLUCAN100 MG PO (09:11)
== END 2017-05-02 13:52 | DRG 177 ==
LOC: D.ER 18:56 → D.MS 21:08
PROVIDERS: Emergency Medicine; Family Medicine; Internal Medicine Pulmonary Disease
DX: J69.0 Pneumonitis due to inhalation of food and vomit (principal); R53.2 Functional quadriplegia; J96.21 Acute and chronic respiratory failure with hypoxia; N39.0 Urinary tract infection, site not specified; J98.11 Atelectasis; J90 Pleural effusion, not elsewhere classified; J44.1 Chronic obstructive pulmonary disease with (acute) exacerbation; T83.518A Infection and inflammatory reaction due to other urinary catheter, initial encounter; J44.0 Chronic obstructive pulmonary disease with (acute) lower respiratory infection; R76.11 Nonspecific reaction to tuberculin skin test without active tuberculosis; I25.10 Atherosclerotic heart disease of native coronary artery without angina pectoris; I10 Essential (primary) hypertension; E78.5 Hyperlipidemia, unspecified; F03.90 Unspecified dementia, unspecified severity, without behavioral disturbance, psychotic disturbance, mood disturbance, and anxiety; L89.322 Pressure ulcer of left buttock, stage 2; J20.9 Acute bronchitis, unspecified; E11.65 Type 2 diabetes mellitus with hyperglycemia

== ENCOUNTER 2017-05-12 08:06 | Inpatient (IN) | payer MEDICARE, OTHER ==
[~2017-05-12] VITALS: Ht 188 cm; Wt 119.2 kg
--- NOTE | ~2017-05-12 | EC ---
PATIENT:ARCHIE AGUILAR DATE OF SERVICE: 05/12/17 SEX: M MEDICAL RECORD: [id number] DATE OF : 40 LOCATION:D.M2 D.213 AGE OF PATIENT: 76 ADMISSION DATE: 05/12/17 REFERRING PHYSICIAN: INTERPRETING PHYSICIAN: JIMENEZ ALVARADO MD ECHOCARDIOGRAM REPORT ECHO CHARGES 4 ECHO COMPLETE CLINICAL DIAGNOSIS: AFIB ECHOCARDIOGRAPHIC MEASUREMENTS (adult normal given) AC root (d.<3.7cm) 3.8 cm LV Septum d (<1.2 cm> 1.3 cm Valve Excursion 1.7 cm LV Septum (systole) 1.5 cm Left Atria (s.<4.0cm> 3.6 cm LVPW d(<1.2cm) 1.2 cm RV (d.<2.3cm) 3.9 cm LVPW (sytole) 1.5 cm LV diastole(<5.6CM) 6.7 cm MV E-F(>70mm/sec) cm LV systole 5.5 cm LVOT Diameter 2.1 cm MV exc.(>10mm) 1.6 cm Est.ejection fraction (50-75%) % Pericardial Effusion N DOPPLER: LVIT cm/sec A 46.0 cm/sec E 33.0 cm/sec LA cm/sec RVSP 20 mmHg LVOT 63 cm/sec AOP1/2T m/s Asc. Ao 98 cm/sec RVOT cm/sec RA cm/sec PA cm/sec AV Gradient Peak 3.86 mmHg AV Mean 1.95 mmHg AV Area 2.8 cm MV Gradient Peak 1.51 mmHg MV Mean 0.41 mmHg MV Area cm COMMENTS: Geriatric Physical Therapist: Mervat SANCHEZ Drawer In Dobby Loom: 2 Dr. Levine TAPE# PACS DATE OF SERVICE: 05/12/2017 FINDINGS: 1. Left ventricle chamber size is mildly dilated. Left ventricular systolic function is markedly reduced, overall ejection fraction 25% to 30%. 2. Left atrium is within normal limits at 3.6 cm. Right atrium and right ventricular chamber sizes are mildly dilated. 3. Valvular structures have normal structure and motion. 4. Doppler interrogation only reveals mild tricuspid regurgitation. No other valvular insufficiency or stenosis and pulmonary systolic pressure is estimated ECHOCARDIOGRAM REPORT [id number] ARCHIE AGUILAR at 20 mmHg. 5. No evidence of pericardial effusion or left ventricular thrombus. TRANSINT:[id number] Voice Confirmation ID: [id number] DOCUMENT ID: [id number] JIMENEZ ALVARADO MD at [facility] CC: [id number] DICTATION DATE: 05/13/1756 STAMP COLLECTOR: 05/13/17 1316 DIS IN 05/12/17 [place] [id number] [place] [id number]
[~2017-05-12 08:06] MED LIST changes: +DIFLUCAN100 MG PO; +MUCINEX DM ER1 EAC1 PO; +NYSTATIN15 GM TOPICAL; +PROTONIX40 MG PO; +TESSALON PERLE100 MG PO
[2017-05-12 08:50] LABS: BASOPHILS 0.2 % (0-2); EOSINOPHILS 1.2 % (0-7); HEMATOCRIT 47.6 % (42.0-54.0); HEMOGLOBIN 15.6 g/dL (13.5-17.5); IMMATURE GRANULOCYTES 0.3 % (0-5); LYMPHOCYTES 18.2 % (15-50); MCH 28.9 pg (26.0-34.0); MCHC 32.8 g/dL (31.0-37.0); MCV 88.1 fL (80.0-100.0); MEAN PLATELET VOLUME 10.2 fL (7.4-10.4); MONOCYTES 10.2 % (2-11); NEUTROPHILS 69.9 % (40-80); RDW 14.1 % (11.5-14.5); WBC 9.1 10x3/uL (4.8-10.8)
[2017-05-12 08:53] LABS: PLATELET COUNT 179 10x3/uL (130-400)
[2017-05-12 08:54] LABS: INR 1.11 (0.85-1.17); PROTIME 13.9 SECONDS (11.6-15.0)
[2017-05-12 08:58] LABS: ALBUMIN 2.9 g/dL (3.4-5.0); ALKALINE PHOSPHATASE 99 U/L (46-116); ALT (SGPT) 15 U/L (10-68); BILIRUBIN - TOTAL 0.79 mg/dL (0.2-1.3); CALC OSMOLALITY 297 mosm/kg (275-300); CALCIUM 9.6 mg/dL (8.5-10.1); CARBON DIOXIDE 32.2 mmol/L (21.0-32.0); CHLORIDE - SERUM 97 mmol/L (98-107); CREATININE - SERUM 1.9 mg/dL (0.6-1.3); POTASSIUM - SERUM 4.9 mmol/L (3.5-5.1); SODIUM 138 mmol/L (136-145); UREA NITROGEN 63 mg/dL (7-18); eGFR NON AFRICAN AMERICAN 37 mL/min (90-120)
[2017-05-12 08:59] LABS: GLUCOSE 167 mg/dL (74-106)
[2017-05-12 09:19] LABS: MAGNESIUM - SERUM 1.3 mg/dL (1.8-2.4); PRO BNP 5264 pg/mL (0-450)
[2017-05-12 09:20] LABS: CREATINE KINASE 874 UL (21-232)
[2017-05-12 09:21] LABS: CKMB 3.9 U/L (0.0-3.6)
[2017-05-12 12:14] VITALS: BP 103/51; BMI 33.7
[2017-05-12 12:51] VITALS: Ht 188 cm; Wt 119.2 kg
[2017-05-12 15:27] VITALS: BP 112/67
== END 2017-05-12 18:09 | disposition hospice, inpatient (51) | DRG 300 ==
LOC: D.ER 08:06 → D.M2 09:53
PROVIDERS: Emergency Medicine
DX: E11.52 Type 2 diabetes mellitus with diabetic peripheral angiopathy with gangrene (principal); I70.263 Atherosclerosis of native arteries of extremities with gangrene, bilateral legs; I13.0 Hypertensive heart and chronic kidney disease with heart failure and stage 1 through stage 4 chronic kidney disease, or unspecified chronic kidney disease; K21.9 Gastro-esophageal reflux disease without esophagitis; I48.91 Unspecified atrial fibrillation; F03.90 Unspecified dementia, unspecified severity, without behavioral disturbance, psychotic disturbance, mood disturbance, and anxiety; E11.65 Type 2 diabetes mellitus with hyperglycemia; M17.0 Bilateral primary osteoarthritis of knee; I50.9 Heart failure, unspecified; N18.9 Chronic kidney disease, unspecified; E11.22 Type 2 diabetes mellitus with diabetic chronic kidney disease; Z86.73 Personal history of transient ischemic attack (TIA), and cerebral infarction without residual deficits; Z87.891 Personal history of nicotine dependence

== ENCOUNTER 2017-05-12 18:22 | Inpatient (IN) | payer OTHER ==
[~2017-05-12] VITALS: Ht 188 cm; Wt 113.7 kg
[2017-05-12 20:00] VITALS: BP 105/51
[2017-05-12 23:43] VITALS: BP 105/51; BMI 33.7
[2017-05-13] VITALS: BP 114/48
[2017-05-13 04:00] VITALS: BP 112/57
[2017-05-13 07:48] VITALS: BP 107/57
[2017-05-13 11:39] VITALS: BP 117/60
[2017-05-13 16:42] VITALS: BP 110/58
[2017-05-13 19:00] VITALS: BP 123/51
[2017-05-14 04:00] VITALS: BP 117/62
[2017-05-14 08:26] VITALS: BP 124/67
[2017-05-14 11:40] VITALS: BP 120/59
[2017-05-14 16:11] VITALS: BP 107/57
[2017-05-14 19:00] VITALS: BP 110/56
[2017-05-15 03:34] VITALS: BP 100/58
[2017-05-15 08:32] VITALS: BP 108/60
[2017-05-15 11:24] VITALS: BP 103/53
[2017-05-15 15:46] VITALS: BP 106/53
[2017-05-15 20:00] VITALS: BP 99/57
[2017-05-16] VITALS (7 sets, daily range): BP systolic 81–128; BP diastolic 48–82
[2017-05-17 08:46] VITALS: BP 99/48
[2017-05-17 11:20] VITALS: BP 106/48
[2017-05-17 17:40] VITALS: Ht 188 cm; Wt 113.7 kg
[2017-05-17 20:00] VITALS: BP 96/43
[2017-05-18] VITALS: BP 96/44
[2017-05-18 08:28] VITALS: BP 99/54
[2017-05-18 19:00] VITALS: BP 116/55
[2017-05-19 08:18] VITALS: BP 108/51
[2017-05-19 11:11] VITALS: BP 108/55
[2017-05-19 21:54] VITALS: BP 109/49
[2017-05-20 09:18] VITALS: BP 141/62
[2017-05-20 19:00] VITALS: BP 131/58
[2017-05-21 08:21] VITALS: BP 107/52
== END 2017-05-21 20:36 | DRG 951 ==
LOC: D.M2 18:22
DX: Z51.5 Encounter for palliative care (principal)